=== PATIENT | female | born 2000 | race Caucasian/White ===

== ENCOUNTER 2024-04-03 01:22 | Outpatient (CLI) | payer OTHER, MEDICAID ==
[~2024-04-03] VITALS: Ht 170.2 cm; Wt 70.5 kg
[~2024-04-03 01:22] MED LIST: PRENATAL TABLET PO
[2024-04-03 02:00] VITALS: BP 120/70; PULSE 95; TEMP 98.5
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
== END 2024-04-03 02:10 | disposition home or self-care (01) ==
LOC: LDRO 01:22
DX: O9A.213 Injury, poisoning and certain other consequences of external causes complicating pregnancy, third trimester (principal); Z3A.35 35 weeks gestation of pregnancy

== ENCOUNTER 2024-05-08 14:20 | Outpatient (CLI) | payer OTHER, MEDICAID ==
[~2024-05-08] VITALS: Ht 170.2 cm; Wt 81.8 kg
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
[2024-05-08 15:33] VITALS: BP 131/77; PULSE 102; TEMP 98.8
== END 2024-05-08 15:30 | disposition home or self-care (01) ==
LOC: LDRO 14:20
DX: O42.92 Full-term premature rupture of membranes, unspecified as to length of time between rupture and onset of labor (principal); Z3A.40 40 weeks gestation of pregnancy

== ENCOUNTER 2024-05-14 06:35 | Inpatient (IN) | payer OTHER, MEDICAID ==
[2024-05-14] VITALS (44 sets, daily range): BP systolic 106–145; BP diastolic 53–73; PULSE 75–113; TEMP 98.1–98.8
[~2024-05-14] VITALS: Ht 170.2 cm; Wt 81.8 kg
[~2024-05-14 06:35] MED LIST changes: +LR & Oxytocin 500 ML IV SCH; +LR 1,000 ML IV SCH
[2024-05-14] MEDS ORDERED: Naloxone 0.4 MG/ML VIAL IV PRN ×2 (07:15→18:00)
[2024-05-14] MEDS ORDERED: Ondansetron 4 MG/2 ML VIAL IV PRN (07:15)
[2024-05-14] MEDS ORDERED: diphenhydrAMINE 50 MG/ML 1 ML VIAL IV PRN (07:15)
[2024-05-14] MEDS ORDERED: ePHEDrine 50 MG/10 ML VIAL IV PRN (07:15)
[2024-05-14] MEDS ORDERED: diphenhydrAMINE 25 MG CAP PO PRN (07:15)
[2024-05-14] MEDS ORDERED: Penicillin G Potassium 5,000,000 UNITS in NS 100 ML IV ONE (07:30)
[2024-05-14 07:48] LABS: BASO # 0.1 K/mm3 (0.0-0.2); BASO % 0.4 % (0.0-2.0); EOS # 0.3 K/mm3 (0.0-0.7); EOS % 2.1 % (0.0-4.0); GRAN # 10.1 K/mm3 (1.4-6.5); GRAN % 72.1 % (42.2-75.2); LYMPH # 2.6 K/mm3 (1.2-3.4); LYMPH % 18.7 % (20.0-51.0); MEAN CELL VOLUME 80 fl (80.0-100.0); MEAN CORPUSCULAR HGB CONC 31 g/dl (33.0-37.0); MEAN PLATELET VOLUME 10.8 fl (7.4-10.4); MONO # 0.9 K/mm3 (0.1-0.6); MONO % 6.3 % (1.7-9.3); PLATELET COUNT 284 K/mm3 (130-400); RED BLOOD COUNT 3.81 M/mm3 (4.10-5.30); REDCELL DISTRIBUTION WIDTH-CV 15.5 % (11.5-14.5)
[2024-05-14 07:50] LABS: HEMATOCRIT 30.5 % (37.0-47.0); HEMOGLOBIN 9.5 g/dl (12.5-16.0); MEAN CORPUSCULAR HEMOGLOBIN 25 pg (27-31)
[2024-05-14] MEDS ORDERED: Penicillin G Potassium 2,500,000 UNITS in NS 100 ML IV SCH (11:30)
[2024-05-14] MEDS ORDERED: ROPivacaine PF 0.2% 200 ML IV ONE (12:57)
[2024-05-14] MEDS ORDERED: oxyCODONE 5 MG TAB PO PRN (18:00)
[2024-05-14] MEDS ORDERED: Witch Hazel 50% Pads Bulk TUB TP PRN (18:00)
[2024-05-14] MEDS ORDERED: Magnes Hydrox (MOM) 80 MG/ML 30 ML CUP PO PRN (18:00)
[2024-05-14] MEDS ORDERED: Acetaminophen 500 MG TAB PO SCH (18:00)
[2024-05-14] MEDS ORDERED: Ibuprofen 800 MG TAB PO SCH (18:00)
[2024-05-14] MEDS ORDERED: Measles/Mumps/Rubella Virus Vaccine Live w Diluent 0.5 ML VIAL SQ SCH (18:00)
[2024-05-14] MEDS ORDERED: Loratadine 10 MG TAB PO PRN (18:00)
[2024-05-14] MEDS ORDERED: Phenylephrine/Mineral Oil/Petrolatum 57 GM TUBE RC PRN (18:00)
[2024-05-14] MEDS ORDERED: Mag/Al Hydrox/Simeth Susp 30 ML CUP PO PRN (18:00)
[2024-05-14] MEDS ORDERED: traZODone 50 MG TAB PO PRN (21:00)
[2024-05-15 05:00] VITALS: BP 133/69; PULSE 99; TEMP 98
[2024-05-15] MEDS ORDERED: Sennosides/Docusate 8.6-50 MG TAB PO SCH (08:00)
[2024-05-15 09:00] VITALS: BP 146/86; PULSE 100
[2024-05-15 13:00] VITALS: BP 110/62; PULSE 64; TEMP 98.4
[2024-05-15 17:08] VITALS: BP 116/72; PULSE 69
[2024-05-15 20:30] VITALS: BP 126/73; PULSE 97; TEMP 98.2
[2024-05-16 08:23] VITALS: BP 132/84; PULSE 72; TEMP 98.3
[2024-05-16] MEDS ORDERED: IBU800 M1 PO (10:07)
== END 2024-05-16 15:10 | disposition home or self-care (01) | DRG 806 ==
LOC: OB 06:35 → LDR 06:35 → OB 12:32
PROVIDERS: ADMIT Obstetrics & Gynecology
PROC: 10E0XZZ Delivery of Products of Conception, External Approach (ICD-10-PCS; principal; 2024-05-14)
PROC: 0UQMXZZ Repair Vulva, External Approach (ICD-10-PCS; 2024-05-14)
PROC: 10907ZC Drainage of Amniotic Fluid, Therapeutic from Products of Conception, Via Natural or Artificial Opening (ICD-10-PCS; 2024-05-14)
PROC: 3E033VJ Introduction of Other Hormone into Peripheral Vein, Percutaneous Approach (ICD-10-PCS; 2024-05-14)
DX: O48.0 Post-term pregnancy (principal); O10.92 Unspecified pre-existing hypertension complicating childbirth; Z37.0 Single live birth; Z3A.40 40 weeks gestation of pregnancy; O70.0 First degree perineal laceration during delivery; O99.824 Streptococcus B carrier state complicating childbirth; O69.81X0 Labor and delivery complicated by cord around neck, without compression, not applicable or unspecified
CPT/HCPCS: J2540; J2590; J2795; J7120